=== PATIENT | male | born 1955 | race Caucasian/White ===

== ENCOUNTER → 2017-08-10 | Outpatient (CLI) | payer OTHER ==
[~2017-08-10] MED LIST: KEP500T PO
== END ==
LOC: RAD 09:49
PROVIDERS: ATTEND Student in an Organized Health Care Education/Training Program
DX: G93.89 Other specified disorders of brain (principal); C79.31 Secondary malignant neoplasm of brain; C80.1 Malignant (primary) neoplasm, unspecified; H70.892 Other mastoiditis and related conditions, left ear
CPT/HCPCS: 70551

== ENCOUNTER 2018-06-07 02:30 | Inpatient (IN) | payer MEDICAID ==
[~2018-06-07] VITALS: Ht 180.3 cm; Wt 60.0 kg
[2018-06-07] MEDS ORDERED: ondansetron/PF 4mg/2ml inj IV ONE (02:45)
[2018-06-07] MEDS ORDERED: normal saline 1000ml 1,000 ML IV ONE ×2 (02:45→04:35)
[2018-06-07] MEDS ORDERED: iohexol 350MG/ML 100ml bottle IV ONE (02:57)
[2018-06-07 03:21] LABS: BASOPHILS % (AUTO) 0.1 % (0-1); EOSINOPHILS % (AUTO) 0 % (0-6); HEMATOCRIT 48.3 % (42.0-52.0); HEMOGLOBIN 16.5 g/dl (14.0-17.9); LYMPHOCYTES # (AUTO) 0.3 X10'3 (1.1-4.8); LYMPHOCYTES % (AUTO) 2.8 % (21-51); MEAN CORPUSCULAR HEMOGLOBIN 34.8 PG (27.0-31.0); MEAN CORPUSCULAR HGB CONC 34.1 % (33.0-36.5); MEAN CORPUSCULAR VOLUME 102.2 FL (78-98); MEAN PLATELET VOLUME 7.9 FL (7.4-10.4); MONOCYTES # (AUTO) 0.5 X10'3 (0-0.9); MONOCYTES % (AUTO) 4.4 % (2-12); NEUTROPHILS # (AUTO) 10.2 X10'3 (1.8-7.7); NEUTROPHILS % (AUTO) 92.7 % (42-75); PLATELET COUNT 105 X10'3 (140-440); RED BLOOD COUNT 4.73 X10'6 (4.70-6.10); RED CELL DISTRIBUTION WIDTH 15.3 % (11.5-14.5)
[2018-06-07 03:38] LABS: ALBUMIN 3.6 G/DL (3.4-5.0); ALBUMIN/GLOBULIN RATIO 0.9 (1.1-1.5); ALKALINE PHOSPHATASE 197 IU/L (46-116); ANION GAP 25 (8-16); ASPARTATE AMINO TRANSFERASE 88 U/L (10-37); BILIRUBIN,TOTAL 1.5 MG/DL (0.1-1.0); BLOOD UREA NITROGEN 15 MG/DL (7-18); BUN/CREATININE RATIO 7.9 (5.4-32.0); CALCIUM 9.9 MG/DL (8.5-10.1); CHLORIDE 88 MMOL/L (99-107); CREATININE 1.91 MG/DL (0.60-1.10); GLUCOSE 144 MG/DL (70-104); SODIUM 136 MMOL/L (135-145); TOTAL CARBON DIOXIDE 23.4 MMOL/L (24-32); TOTAL PROTEIN 7.4 G/DL (6.4-8.2); TROPONIN I < 0.04 NG/ML (0.0-0.05); eGFR 36 ML/MIN
[2018-06-07 03:51] LABS: ALANINE AMINOTRANSFERASE 67 U/L (12-78)
[2018-06-07 03:54] LABS: CLARITY,URINE CLEAR (Clear); GLUCOSE, URINE NEGATIVE (Neg); KETONES,URINE NEGATIVE (Neg); LEUKOCYTE ESTERASE ,URINE TRACE (Neg); NITRITES, URINE POSITIVE (Neg); OCCULT BLOOD,URINE MODERATE (Neg); PH,URINE 5.5 (4.8-8.0); PROTEIN,URINE 30 mg/dl (Neg)
[2018-06-07 03:55] LABS: POTASSIUM 2.9 MMOL/L (3.5-5.1)
[2018-06-07 04:00] LABS: LIPASE 4181 U/L (73-393)
[2018-06-07 04:03] LABS: UA COLLECTION TYPE STRAIGHT CATH
[2018-06-07 04:04] LABS: COLOR,URINE Orange (Yellow); MUCUS STRANDS MANY /LPF (Neg); SQUAMOUS EPITHELIAL CELL,UR FEW /LPF (FEW)
[2018-06-07 04:05] LABS: BACTERIA,URINE 3+ /HPF (Neg)
[2018-06-07 04:06] LABS: RBC,URINE 0-2 /HPF (0-2); RENAL CELLS, URINE FEW /HPF
[2018-06-07 04:09] LABS: FINE GRANULAR CAST 0-3 /LPF (NEGATIVE)
[2018-06-07 04:10] LABS: HYALINE CASTS 0-3 /LPF (NEGATIVE)
[2018-06-07] MEDS ORDERED: thiamine 100mg/ml 2ml inj. IV ONE (04:25)
[2018-06-07] MEDS ORDERED: CefTRIAXone 2gm/D5W 50ml 50 ML IV ONE (04:25)
[2018-06-07] MEDS ORDERED: potassium Cl 20 mEq SR tablet PO ONE (04:25)
[2018-06-07] MEDS: potassium 10mEq/100ml NS w/LIDOcaine (10mg/bag) IV SCH ×2 (04:39→05:25)
[2018-06-07] MEDS: magnesium 1gm/100ml D5W IVPB 100 ML IV SCH ×2 (04:39→05:25)
[2018-06-07] MEDS ORDERED: haloperidol lactate 5mg/ml inj IM PRN (05:25)
[2018-06-07] MEDS ORDERED: magnesium 4gm in 100ml NS 100 ML IV PRN (05:25)
[2018-06-07] MEDS ORDERED: haloperidol 5mg tablet PO PRN (05:25)
[2018-06-07] MEDS ORDERED: ondansetron/PF 4mg/2ml inj IV PRN (05:25)
[2018-06-07] MEDS ORDERED: thiamine inj. 100 MG in normal saline 100ml IV soln 100 ML IV ONE (05:25)
[2018-06-07] MEDS ORDERED: acetaminophen 325mg tablet PO PRN ×2 (05:25)
[2018-06-07] MEDS ORDERED: LORazepam 1 MG tablet PO PRN (05:25)
[2018-06-07] MEDS ORDERED: potassium Cl 20 mEq SR tablet PO PRN ×2 (05:25)
[2018-06-07] MEDS ORDERED: LORazepam 2 mg/ml vial IV PRN (05:25)
[2018-06-07] MEDS ORDERED: magnesium hydroxide 30ml (MOM) UD suspension PO PRN (05:25)
[2018-06-07] MEDS ORDERED: potassium Cl 40MEQ/NS 500ml 500 ML IV PRN (05:25)
[2018-06-07] MEDS ORDERED: magnesium 1gm/100ml D5W IVPB 100 ML IV PRN (05:25)
[2018-06-07] MEDS ORDERED: HYDROcodone/acetaminophen 5mg/325mg tablet PO PRN (05:25)
[2018-06-07] MEDS ORDERED: mag hydrox/Alum hydrox/simeth 30ml oral suspension PO PRN (05:25)
[2018-06-07] MEDS: normal saline 1000ml 1,000 ML IV SCH ×2 (05:46→15:25)
[2018-06-07 06:00] VITALS: BP 196/103
[2018-06-07] MEDS: HYDROcodone/acetaminophen 10/325mg tab PO PRN ×2 (06:07→22:53)
[2018-06-07 08:00] VITALS: BP 149/88
[2018-06-07] MEDS: K and/or MAG REPLACEMENT MC SCH (08:00)
[2018-06-07] MEDS: potassium Cl 40MEQ/NS 500ml 500 ML IV PRN ×2 (08:16→16:33)
[2018-06-07] MEDS: folic acid inj. 2 MG, thiamine inj. 100 MG, MVI, adult No.4 with vit. K 10 ML in dextro... IV SCH ×4 (08:52)
[2018-06-07 11:00] VITALS: BP 117/81
[2018-06-07 18:00] VITALS: BP 122/80
[2018-06-07] MEDS ORDERED: temazepam 15mg capsule PO PRN (21:00)
[2018-06-08] VITALS: BP 123/72
[2018-06-08] MEDS: normal saline 1000ml 1,000 ML IV SCH ×3 (01:25→21:25)
[2018-06-08 06:08] LABS: BASOPHILS % (AUTO) 0.2 % (0-1); EOSINOPHILS % (AUTO) 0.4 % (0-6); HEMATOCRIT 36.7 % (42.0-52.0); HEMOGLOBIN 12.4 g/dl (14.0-17.9); LYMPHOCYTES # (AUTO) 0.4 X10'3 (1.1-4.8); LYMPHOCYTES % (AUTO) 7.5 % (21-51); MEAN CORPUSCULAR HEMOGLOBIN 34.5 PG (27.0-31.0); MEAN CORPUSCULAR HGB CONC 33.7 % (33.0-36.5); MEAN CORPUSCULAR VOLUME 102.3 FL (78-98); MEAN PLATELET VOLUME 8.2 FL (7.4-10.4); MONOCYTES # (AUTO) 0.3 X10'3 (0-0.9); MONOCYTES % (AUTO) 4.9 % (2-12); PLATELET COUNT 79 X10'3 (140-440); RED BLOOD COUNT 3.59 X10'6 (4.70-6.10); RED CELL DISTRIBUTION WIDTH 15.1 % (11.5-14.5); WHITE BLOOD COUNT 5.7 X10'3 (4.5-11.0)
[2018-06-08 06:25] LABS: ALBUMIN 2.4 G/DL (3.4-5.0); ANION GAP 11 (8-16); BLOOD UREA NITROGEN 14 MG/DL (7-18); BUN/CREATININE RATIO 15.4 (5.4-32.0); CALCIUM 8.5 MG/DL (8.5-10.1); CHLORIDE 101 MMOL/L (99-107); CREATININE 0.91 MG/DL (0.60-1.10); GLUCOSE 80 MG/DL (70-104); MAGNESIUM 1.5 MG/DL (1.5-2.4); POTASSIUM 4.4 MMOL/L (3.5-5.1); SODIUM 137 MMOL/L (135-145); eGFR 85 ML/MIN
[2018-06-08 07:00] VITALS: BP 114/75
[2018-06-08] MEDS: K and/or MAG REPLACEMENT MC SCH (08:00)
[2018-06-08] MEDS: folic acid inj. 2 MG, thiamine inj. 100 MG, MVI, adult No.4 with vit. K 10 ML in dextro... IV SCH ×4 (08:22)
[2018-06-08] MEDS: CefTRIAXone/D5W-Rocephin 1gm 50 ML IV SCH (08:22)
[2018-06-08] MEDS: thiamine 100mg tablet PO SCH (08:22)
[2018-06-08 11:00] VITALS: BP 118/81
[2018-06-08 14:32] LABS: LIPASE 1249 U/L (73-393)
[2018-06-08 19:00] VITALS: BP 95/62
[2018-06-08 20:00] VITALS: BP 121/78
[2018-06-09] VITALS: BP 131/81
[2018-06-09] MEDS: normal saline 1000ml 1,000 ML IV SCH ×2 (03:59→16:16)
[2018-06-09 05:12] LABS: BASOPHILS % (AUTO) 0.1 % (0-1); EOSINOPHILS % (AUTO) 1.1 % (0-6); HEMATOCRIT 36.7 % (42.0-52.0); HEMOGLOBIN 12.4 g/dl (14.0-17.9); LYMPHOCYTES # (AUTO) 0.4 X10'3 (1.1-4.8); LYMPHOCYTES % (AUTO) 8.2 % (21-51); MEAN CORPUSCULAR HEMOGLOBIN 34.3 PG (27.0-31.0); MEAN CORPUSCULAR HGB CONC 33.7 % (33.0-36.5); MEAN CORPUSCULAR VOLUME 101.9 FL (78-98); MEAN PLATELET VOLUME 7.8 FL (7.4-10.4); MONOCYTES # (AUTO) 0.3 X10'3 (0-0.9); MONOCYTES % (AUTO) 6.7 % (2-12); NEUTROPHILS # (AUTO) 3.8 X10'3 (1.8-7.7); NEUTROPHILS % (AUTO) 83.9 % (42-75); PLATELET COUNT 88 X10'3 (140-440); RED CELL DISTRIBUTION WIDTH 15.3 % (11.5-14.5); WHITE BLOOD COUNT 4.5 X10'3 (4.5-11.0)
[2018-06-09 06:19] LABS: ALBUMIN 2.2 G/DL (3.4-5.0); ANION GAP 7 (8-16); BLOOD UREA NITROGEN 10 MG/DL (7-18); CALCIUM 8.2 MG/DL (8.5-10.1); CHLORIDE 102 MMOL/L (99-107); CREATININE 0.91 MG/DL (0.60-1.10); GLUCOSE 80 MG/DL (70-104); MAGNESIUM 1.4 MG/DL (1.5-2.4); POTASSIUM 3.7 MMOL/L (3.5-5.1); SODIUM 135 MMOL/L (135-145); TOTAL CARBON DIOXIDE 25.9 MMOL/L (24-32); eGFR 85 ML/MIN
[2018-06-09] MEDS: CefTRIAXone/D5W-Rocephin 1gm 50 ML IV SCH (07:18)
[2018-06-09] MEDS: K and/or MAG REPLACEMENT MC SCH (07:20)
[2018-06-09] MEDS: thiamine 100mg tablet PO SCH (07:20)
[2018-06-09] MEDS: lactobacillus rhamnosus 10,000 MMU CELLS/CAPSULE PO SCH ×2 (07:20→21:07)
[2018-06-09 08:00] VITALS: BP 132/86
[2018-06-09] MEDS: folic acid inj. 2 MG, thiamine inj. 100 MG, MVI, adult No.4 with vit. K 10 ML in dextro... IV SCH ×4 (08:00)
[2018-06-09] MEDS ORDERED: iohexol 300mg/ml 100ml inj. ONE (09:12)
[2018-06-09] MEDS ORDERED: thiamine 100mg tablet PO ONE (11:00)
[2018-06-09] MEDS: multivitamins, therapeutics tablet PO SCH (11:01)
[2018-06-09] MEDS: folic acid 1mg tablet PO SCH (11:01)
[2018-06-09] MEDS: magnesium Cl slow-release 64mg tablet PO PRN ×2 (11:05→21:07)
[2018-06-09 11:41] VITALS: BP 123/79
[2018-06-09 20:00] VITALS: BP 135/94
[2018-06-10] VITALS (14 sets, daily range): BP systolic 102–140; BP diastolic 71–92
[2018-06-10] MEDS: normal saline 1000ml 1,000 ML IV SCH ×2 (01:54→13:25)
[2018-06-10] MEDS: K and/or MAG REPLACEMENT MC SCH (08:00)
[2018-06-10] MEDS: multivitamins, therapeutics tablet PO SCH (08:00)
[2018-06-10] MEDS: lactobacillus rhamnosus 10,000 MMU CELLS/CAPSULE PO SCH (08:00)
[2018-06-10] MEDS: folic acid 1mg tablet PO SCH (08:00)
[2018-06-10] MEDS: thiamine 100mg tablet PO SCH (08:00)
[2018-06-10 08:03] LABS: BASOPHILS % (AUTO) 0.2 % (0-1); EOSINOPHILS # (AUTO) 0.1 X10'3 (0-0.9); EOSINOPHILS % (AUTO) 1.8 % (0-6); HEMATOCRIT 35.9 % (42.0-52.0); LYMPHOCYTES # (AUTO) 0.4 X10'3 (1.1-4.8); LYMPHOCYTES % (AUTO) 10.2 % (21-51); MEAN CORPUSCULAR HEMOGLOBIN 34.3 PG (27.0-31.0); MEAN CORPUSCULAR HGB CONC 33.5 % (33.0-36.5); MEAN CORPUSCULAR VOLUME 102.5 FL (78-98); MEAN PLATELET VOLUME 6.9 FL (7.4-10.4); MONOCYTES # (AUTO) 0.4 X10'3 (0-0.9); MONOCYTES % (AUTO) 11.3 % (2-12); NEUTROPHILS # (AUTO) 2.9 X10'3 (1.8-7.7); NEUTROPHILS % (AUTO) 76.5 % (42-75); PLATELET COUNT 102 X10'3 (140-440); RED CELL DISTRIBUTION WIDTH 15.2 % (11.5-14.5); WHITE BLOOD COUNT 3.8 X10'3 (4.5-11.0)
[2018-06-10] MEDS: CefTRIAXone/D5W-Rocephin 1gm 50 ML IV SCH (08:11)
[2018-06-10 08:14] LABS: ALBUMIN 1.9 G/DL (3.4-5.0); ANION GAP 17 (8-16); BLOOD UREA NITROGEN 10 MG/DL (7-18); BUN/CREATININE RATIO 11.5 (5.4-32.0); CALCIUM 7.7 MG/DL (8.5-10.1); CHLORIDE 100 MMOL/L (99-107); CREATININE 0.87 MG/DL (0.60-1.10); GLUCOSE 51 MG/DL (70-104); MAGNESIUM 1.3 MG/DL (1.5-2.4); POTASSIUM 3.6 MMOL/L (3.5-5.1); SODIUM 136 MMOL/L (135-145); TOTAL CARBON DIOXIDE 19.2 MMOL/L (24-32); eGFR 89 ML/MIN
[2018-06-10] MEDS ORDERED: SULF1TAB49 PO (09:22)
[2018-06-10] MEDS ORDERED: normal saline 1000ml 1,000 ML IV SCH (09:36)
[2018-06-10] MEDS ORDERED: fentaNYL/PF 50MCG/1 ML 2ML syringe IV PRN (09:40)
[2018-06-10] MEDS ORDERED: LIDOcaine 1%/PF 5ML 10 MG/ML VIAL SQ ONE (09:40)
[2018-06-10] MEDS ORDERED: midazolam 2 mg/2 ml injection IV PRN (09:40)
[2018-06-10] MEDS ORDERED: midazolam 2 mg/2 ml injection ONE (10:10)
[2018-06-10] MEDS ORDERED: fentaNYL/PF 50MCG/1 ML 2ML syringe ONE (10:11)
[2018-06-10] MEDS ORDERED: LIDOcaine 1% (10mg/ml) 2ml vial ONE (10:41)
[2018-06-10] MEDS ORDERED: magnesium 4gm in 100ml NS 100 ML IV PRN (13:15)
[2018-06-10] MEDS ORDERED: magnesium Cl slow-release 64mg tablet PO PRN (13:15)
== END 2018-06-10 15:10 | disposition home health service (06) | DRG 282 ==
LOC: ER 02:30 → SUR 3N 05:25
PROVIDERS: ADMIT Hospitalist; ATTEND Internal Medicine
PROC: B3251ZZ Computerized Tomography (CT Scan) of Bilateral Common Carotid Arteries using Low Osmolar Contrast (ICD-10-PCS; 2018-06-07)
PROC: B32G1ZZ Computerized Tomography (CT Scan) of Bilateral Vertebral Arteries using Low Osmolar Contrast (ICD-10-PCS; 2018-06-07)
PROC: B3281ZZ Computerized Tomography (CT Scan) of Bilateral Internal Carotid Arteries using Low Osmolar Contrast (ICD-10-PCS; 2018-06-07)
PROC: BW211ZZ Computerized Tomography (CT Scan) of Abdomen and Pelvis using Low Osmolar Contrast (ICD-10-PCS; 2018-06-09)
PROC: 0FB03ZX Excision of Liver, Percutaneous Approach, Diagnostic (ICD-10-PCS; principal; 2018-06-10)
DX: K85.20 Alcohol induced acute pancreatitis without necrosis or infection (principal); E43 Unspecified severe protein-calorie malnutrition; G93.40 Encephalopathy, unspecified; J90 Pleural effusion, not elsewhere classified; N17.9 Acute kidney failure, unspecified; R16.0 Hepatomegaly, not elsewhere classified; E83.42 Hypomagnesemia; B96.20 Unspecified Escherichia coli [E. coli] as the cause of diseases classified elsewhere; W01.198A Fall on same level from slipping, tripping and stumbling with subsequent striking against other object, initial encounter; E87.6 Hypokalemia; F17.200 Nicotine dependence, unspecified, uncomplicated; N39.0 Urinary tract infection, site not specified; F10.20 Alcohol dependence, uncomplicated; M54.2 Cervicalgia; Z85.118 Personal history of other malignant neoplasm of bronchus and lung; Z68.1 Body mass index [BMI] 19.9 or less, adult; Y93.89 Activity, other specified; Y92.89 Other specified places as the place of occurrence of the external cause; Y99.8 Other external cause status; Z71.41 Alcohol abuse counseling and surveillance of alcoholic; Z79.899 Other long term (current) drug therapy
CPT/HCPCS: 36415; 47000; 70450; 70498; 74177; 76700; 77012; 80048; 80053; 81001; 83690; 83735; 84484; 85025; 87070; 87077; 87088; 87186; 93005; 96365; 96375; 97116; 97162; 97530; 99152; 99153; 99285; G0378; J0696; J2250; J2405; J3010; J3411; J3480; J3490; J7030; J7060; Q9967

== ENCOUNTER 2018-07-24 07:56 | Day surgery (SDC) | payer MEDICAID ==
[~2018-07-24] VITALS: Ht 180.3 cm; Wt 63.3 kg
[2018-07-24 08:15] VITALS: BP 139/95
[2018-07-24] MEDS ORDERED: normal saline 1000ml 1,000 ML IV PRN (08:20)
[2018-07-24] MEDS ORDERED: LIDOcaine 1% (10mg/ml) 2ml vial ONE (08:36)
[2018-07-24 08:45] LABS: BASOPHILS % (AUTO) 0.6 % (0-1); EOSINOPHILS # (AUTO) 0.1 X10'3 (0-0.9); EOSINOPHILS % (AUTO) 1.8 % (0-6); LYMPHOCYTES # (AUTO) 0.9 X10'3 (1.1-4.8); LYMPHOCYTES % (AUTO) 12.7 % (21-51); MEAN CORPUSCULAR HEMOGLOBIN 31.3 PG (27.0-31.0); MEAN CORPUSCULAR HGB CONC 33.3 % (33.0-36.5); MEAN CORPUSCULAR VOLUME 93.8 FL (78-98); MEAN PLATELET VOLUME 7.4 FL (7.4-10.4); MONOCYTES # (AUTO) 0.5 X10'3 (0-0.9); NEUTROPHILS # (AUTO) 5.3 X10'3 (1.8-7.7); NEUTROPHILS % (AUTO) 77.9 % (42-75); PRE OP HEMATOCRIT 38.8 % (42.0-52.0); PRE OP HEMOGLOBIN 12.9 g/dL (14.0-17.9); PRE OP PLATELET COUNT 260 X10'3 (140-440); RED BLOOD COUNT 4.13 X10'6 (4.70-6.10); RED CELL DISTRIBUTION WIDTH 13.9 % (11.5-14.5)
[2018-07-24] MEDS ORDERED: LIDO5CRE18 TP (08:47)
[2018-07-24] MEDS ORDERED: [UNRECOGNIZED DRUG - OTHER] PO (08:47)
[2018-07-24] MEDS ORDERED: ONDA8TAB13 PO (08:47)
[2018-07-24] MEDS ORDERED: fentaNYL/PF 50MCG/1 ML 2ML syringe IV PRN (09:15)
[2018-07-24] MEDS ORDERED: midazolam 2 mg/2 ml injection IV PRN (09:15)
[2018-07-24] MEDS ORDERED: LIDOcaine 1%/PF 5ML 10 MG/ML VIAL SQ ONE (09:15)
[2018-07-24] MEDS ORDERED: heparin sodium, porcine/PF 100unit/ml 5ML syringe ICATH ONE (09:15)
[2018-07-24] MEDS ORDERED: heparin sodium, porcine/PF 100unit/ml 5ML syringe ONE (09:20)
[2018-07-24] MEDS ORDERED: LIDOcaine 1%/PF 5ML 10 MG/ML VIAL ONE (09:20)
[2018-07-24] MEDS ORDERED: midazolam 2 mg/2 ml injection ONE (09:21)
[2018-07-24] MEDS ORDERED: fentaNYL/PF 50MCG/1 ML 2ML syringe ONE (09:21)
[2018-07-24 10:24] VITALS: BP 143/92
[2018-07-24 10:45] VITALS: BP 141/86
[2018-07-24 11:00] VITALS: BP 123/88
[2018-07-24 11:16] VITALS: BP 141/98
== END 2018-07-24 11:35 | disposition home or self-care (01) ==
LOC: SSTAY O 07:56
PROVIDERS: ATTEND Radiology Diagnostic Radiology
DX: C34.91 Malignant neoplasm of unspecified part of right bronchus or lung (principal); Z86.69 Personal history of other diseases of the nervous system and sense organs; Z87.891 Personal history of nicotine dependence; Z85.841 Personal history of malignant neoplasm of brain; Z92.21 Personal history of antineoplastic chemotherapy; Z79.899 Other long term (current) drug therapy
CPT/HCPCS: 36415; 36561; 76937; 77001; 85025; 99152; 99153; J1642; J2001; J2250; J3010; J3490; J7030; A6219; C1788; C1894